=== PATIENT | male | born 1985 | race American Indian/Alaskan Native ===

== ENCOUNTER 2021-01-25 16:05 | Emergency (ER) | payer OTHER ==
[2021-01-25 16:11] VITALS: BP 144/85
[2021-01-25] MEDS ORDERED: FAMOTIDINE 20 MG TAB PO ONE (16:33)
[2021-01-25 17:14] LABS: Alanine Aminotransferase 49 units/L (7-56); Albumin 4.4 g/dL (3.9-5); BUN/Creatinine Ratio 13; Blood Urea Nitrogen 12 mg/dL (9-20); Calcium 9.6 mg/dL (8.4-10.2); Hemolysis Index 10
--- NOTE | 2021-01-25 17:33 | XRay Report ---
CHEST 2 VIEWS INDICATION / CLINICAL INFORMATION: Chest pain. COMPARISON: None available. FINDINGS: SUPPORT DEVICES: None. HEART / MEDIASTINUM: No significant abnormality. LUNGS / PLEURA: No significant pulmonary or pleural abnormality. No pneumothorax. ADDITIONAL FINDINGS: No significant additional findings. IMPRESSION: 1. No acute findings. Signer Name: Julienne Larson MD Signed: 01/25/2021 5:28 PM Workstation Name: [id number]
--- NOTE | 2021-01-25 18:02 | Emergency Department Report ---
ED Chest Pain HPI - General Chief Complaint: Chest Pain Stated Complaint: CHEST PAIN/SOB PUI?: Yes Time Seen by Provider: 01/25/21 16:30 Source: patient Mode of arrival: Ambulatory Limitations: No Limitations - History of Present Illness Initial Comments: This is a 35-year-old male with a past medical history of GERD and anxiety who presents to the ED complaining of intermittent left-sided chest pain x1 week. Patient states that today the pain was persistent and not going away and accompanied by one episode of shortness of breath which brought him into the ED today. Patient denies being around anyone that is been sick. Patient denies any injury or trauma to the chest. Patient does deny coughing, fever, chills, nausea vomiting abdominal pain. Patient does note that he is not taking any medication for anxiety or for his acid reflux. MD Complaint: chest pain - Related Data Previous Rx's Medication Instructions Recorded Last Taken Type Famotidine [Pepcid] 20 mg PO BID #40 tablet 01/25/21 Unknown Rx Allergies Allergy/AdvReac Type Severity Reaction Status Date / Time No Known Allergies Allergy Unverified 01/25/21 16:10 Heart Score - HEART Score History: Slightly suspicious EKG: Normal Age: < 45 Risk factors: No known risk factors Troponin: < normal limit HEART Score: 0 ED Review of Systems ROS: Stated complaint: CHEST PAIN/SOB Other details as noted in HPI Comment: All other systems reviewed and negative ED Past Medical Hx - Past Medical History Previous Medical History?: Yes Hx GERD: Yes Hx Psychiatric Treatment: Yes (anxiety) - Medications Home Medications: Home Medications Medication Instructions Recorded Confirmed Last Taken Type Famotidine [Pepcid] 20 mg PO BID #40 tablet 01/25/21 Unknown Rx ED Physical Exam - General Limitations: No Limitations General appearance: alert, in no apparent distress - Head Head exam: Present: atraumatic, normocephalic - Eye Eye exam: Present: normal appearance - ENT ENT exam: Present: mucous membranes moist - Neck Neck exam: Present: normal inspection, full ROM - Respiratory Respiratory exam: Present: normal lung sounds bilaterally. Absent: respiratory distress, wheezes, chest wall tenderness, accessory muscle use - Cardiovascular Cardiovascular Exam: Present: regular rate, normal rhythm. Absent: systolic murmur, diastolic murmur, rubs, gallop - GI/Abdominal GI/Abdominal exam: Present: soft, normal bowel sounds - Rectal Rectal exam: Present: deferred - Extremities Exam Extremities exam: Present: normal inspection, full ROM - Back Exam Back exam: Present: normal inspection - Neurological Exam Neurological exam: Present: alert, oriented X3, normal gait - Psychiatric Psychiatric exam: Present: normal affect, normal mood - Skin Skin exam: Present: warm, dry, intact, normal color. Absent: rash ED Course Vital Signs 01/25/21 16:10 Temperature 98.7 F Pulse Rate 79 Respiratory 22 Rate Blood Pressure 144/85 O2 Sat by Pulse 99 Oximetry PATRICE score - Patrice Score Age > 65: (0) No Aspirin use within the Past 7 Days: (0) No 3 or more CAD Risk Factors: (0) No Known CAD with more than 50% Stenosis: (0) No Elevated Cardiac Markers: (0) No ST Deviation Greater than 0.5mm: (0) No ED Medical Decision Making - Lab Data Result diagrams: 01/25/21 16:40 Laboratory Last Values Sodium 138 mmol/L (137-145) 01/25/21 16:40 Potassium 4.0 mmol/L (3.6-5.0) 01/25/21 16:40 Chloride 103.8 mmol/L (98-107) 01/25/21 16:40 Carbon Dioxide 27 mmol/L (22-30) 01/25/21 16:40 Anion Gap 11 mmol/L 01/25/21 16:40 BUN 12 mg/dL (9-20) 01/25/21 16:40 Creatinine 0.9 mg/dL (0.8-1.3) 01/25/21 16:40 Estimated GFR > 60 ml/min 01/25/21 16:40 BUN/Creatinine Ratio 13 % 01/25/21 16:40 Glucose 91 mg/dL (75-100) 01/25/21 16:40 Calcium 9.6 mg/dL (8.4-10.2) 01/25/21 16:40 Total Bilirubin 0.40 mg/dL (0.1-1.2) 01/25/21 16:40 AST 27 units/L (5-40) 01/25/21 16:40 ALT 49 units/L (7-56) 01/25/21 16:40 Alkaline Phosphatase 136 units/L (35-129) H 01/25/21 16:40 Troponin T < 0.010 ng/mL (0.00-0.029) 01/25/21 16:40 Total Protein 7.5 g/dL (6.3-8.2) 01/25/21 16:40 Albumin 4.4 g/dL (3.9-5) 01/25/21 16:40 Albumin/Globulin Ratio 1.4 % 01/25/21 16:40 - EKG Data EKG shows normal: sinus rhythm Rate: normal - EKG Data Interpretation: normal EKG - Radiology Data Radiology results: report reviewed, image reviewed Fluoro Time In Minutes: CHEST 2 VIEWS INDICATION / CLINICAL INFORMATION: Chest pain. COMPARISON: None available. FINDINGS: SUPPORT DEVICES: None. HEART / MEDIASTINUM: No significant abnormality. LUNGS / PLEURA: No significant pulmonary or pleural abnormality. No pneumothorax. ADDITIONAL FINDINGS: No significant additional findings. IMPRESSION: 1. No acute findings. Signer Name: Julienne Larson MD Signed: 01/25/2021 5:28 PM Workstation Name: [email or web address] Transcribed By: DT Dictated By: Segun Larson MD Electronically Authenticated By: Segun Larson MD Signed Date/Time: 01/25/21 1728 - Medical Decision Making 35-year-old male presented with chest pain All labs within normal limits, troponin negative, chest x-ray shows no acute findings EKG was normal. I discussed all this findings with the patient. I discussed with patient follow-up with primary care physician. I discussed pain medications such as naproxen for pain. I also suggested patient to follow-up for his anxiety management. Patient is in no acute distress throughout ED stay. Patient also had no respiratory distress. - Differential Diagnosis Chest wall pain, ACS, costochondritis, acid reflux Critical care attestation.: If time is entered above; I have spent that time in minutes in the direct care of this critically ill patient, excluding procedure time. ED Disposition Clinical Impression: Chest pain, Costochondritis, GERD (gastroesophageal reflux disease) Disposition: -01 TO HOME OR SELFCARE Is pt being admited?: No Does the pt Need Aspirin: No Condition: Stable Instructions: Costochondritis, [id number], Nonspecific Chest Pain, Adult, [id number], Chest Pain (ED) Additional Instructions: Make sure to follow up with the primary care physician as discussed. Take all your medications as you've been prescribed. If you have any worsening symptoms or develop new symptoms please return to ED immediately. Prescriptions: Famotidine [Pepcid] 20 mg PO BID #40 tablet Referrals: PRIMARY CAREMD [Primary Care Provider] - 3-5 Days [facility] [Outside] - 3-5 Days [facility] [Outside] - 3-5 Days CAMI TORRES MD [Staff Physician] - 3-5 Days Forms: Work/School Release Form(ED) Time of Disposition: 18:11
== END 2021-01-25 18:23 | disposition home or self-care (01) ==
LOC: ED 16:05
DX: K21.9 Gastro-esophageal reflux disease without esophagitis (principal); M94.0 Chondrocostal junction syndrome [Tietze]; R07.89 Other chest pain; F41.9 Anxiety disorder, unspecified; Z79.899 Other long term (current) drug therapy
CPT/HCPCS: 36415; 71046; 80048; 80053; 84484; 93005

== ENCOUNTER 2021-01-31 17:00 | Emergency (ER) | payer SELFPAY ==
[2021-01-31 17:56] LABS: Basophils % (Auto) 0.7 % (0.0-1.8); Eosinophils % (Auto) 0.6 % (0.0-4.3); Hematocrit 44.6 % (35.5-45.6); Hemoglobin 14.9 gm/dl (11.8-15.2); Lymphocytes # (Auto) 2.4 K/mm3 (1.2-5.4); Lymphocytes % (Auto) 38.3 % (13.4-35.0); Mean Corpuscular HGB Conc 33 % (32-34); Mean Corpuscular Volume 81 fl (84-94); Monocytes # (Auto) 0.7 K/mm3 (0.0-0.8); Monocytes % (Auto) 10.5 % (0.0-7.3); Platelet Count 266 K/mm3 (140-440); Red Blood Count 5.53 M/mm3 (3.65-5.03); Red Cell Distribution Width 15.5 % (13.2-15.2)
--- NOTE | 2021-01-31 18:14 | XRay Report ---
CHEST 2 VIEWS INDICATION / CLINICAL INFORMATION: chest pain. COMPARISON: 01/25/2021 FINDINGS: SUPPORT DEVICES: None. HEART / MEDIASTINUM: No significant abnormality. LUNGS / PLEURA: No significant pulmonary or pleural abnormality. No pneumothorax. ADDITIONAL FINDINGS: No significant additional findings. IMPRESSION: 1. No acute findings or significant interval change when compared to the recent prior radiograph. Signer Name: Yunior Lopez MD Signed: 01/31/2021 6:10 PM Workstation Name: [id number]
[2021-01-31 18:18] LABS: Alanine Aminotransferase 40 units/L (7-56); Albumin 4.1 g/dL (3.9-5); BUN/Creatinine Ratio 16; Blood Urea Nitrogen 14 mg/dL (9-20); Calcium 9.3 mg/dL (8.4-10.2); Hemolysis Index 18
--- NOTE | 2021-01-31 18:57 | Emergency Department Report ---
ED Chest Pain HPI - General Chief Complaint: Chest Pain Stated Complaint: CHEST PAIN Time Seen by Provider: 01/31/21 17:28 Source: patient Mode of arrival: Ambulatory Limitations: No Limitations - History of Present Illness Initial Comments: 35-year-old male, history of acid reflux and anxiety, presents to ED with chest pain. Patient reports onset of chest pain yesterday. Patient states he went to the mall on yesterday. States this was his first visit at the mall since the pandemic began. Patient states there were lots of people at the mall and this mall visit this triggered his anxiety. Patient states he developed a dull pain in the left chest, nonradiating. He reports associated sweating of bilateral palms of his hands and some mild shortness of breath. Patient denies any diaphoresis, nausea, vomiting, leg pain, swelling, cough, fever. Patient is not currently taking anything for anxiety. Patient denies any chest pain at this time. Patient was seen for same 1 week ago and given a prescription for famotidine at that time. MD Complaint: chest pain - Related Data Previous Rx's Medication Instructions Recorded Last Taken Type Famotidine [Pepcid] 20 mg PO BID #40 tablet 01/25/21 Unknown Rx LORazepam [Ativan] 0.5 mg PO BID PRN #10 tab 01/31/21 Unknown Rx Allergies Allergy/AdvReac Type Severity Reaction Status Date / Time No Known Allergies Allergy Unverified 01/25/21 16:10 Heart Score - HEART Score History: Slightly suspicious EKG: Normal Age: < 45 Risk factors: 1-2 risk factors Troponin: < normal limit HEART Score: 1 ED Review of Systems ROS: Stated complaint: CHEST PAIN Other details as noted in HPI ED Past Medical Hx - Past Medical History Previous Medical History?: Yes Hx GERD: Yes Hx Psychiatric Treatment: Yes (anxiety) - Surgical History Past Surgical History?: No - Social History Smoking Status: Never Smoker Substance Use Type: None - Medications Home Medications: Home Medications Medication Instructions Recorded Confirmed Last Taken Type Famotidine [Pepcid] 20 mg PO BID #40 tablet 01/25/21 Unknown Rx LORazepam [Ativan] 0.5 mg PO BID PRN #10 tab 01/31/21 Unknown Rx ED Physical Exam - General Limitations: No Limitations ED Course Vital Signs 01/31/21 01/31/21 01/31/21 17:25 18:48 18:51 Temperature 98.0 F Pulse Rate 71 82 Respiratory 18 12 12 Rate Blood Pressure 122/71 Blood Pressure [Left] O2 Sat by Pulse 100 100 100 Oximetry 01/31/21 01/31/21 19:00 20:10 Temperature Pulse Rate 75 73 Respiratory 25 H 16 Rate Blood Pressure 136/77 Blood Pressure 124/72 [Left] O2 Sat by Pulse 99 98 Oximetry DANA score - Dana Score Age > 65: (0) No Aspirin use within the Past 7 Days: (0) No 3 or more CAD Risk Factors: (0) No Known CAD with more than 50% Stenosis: (0) No Elevated Cardiac Markers: (0) No ST Deviation Greater than 0.5mm: (0) No ED Medical Decision Making - Lab Data Result diagrams: 01/31/21 17:48 01/31/21 17:48 - EKG Data -: EKG Interpreted by Me EKG shows normal: sinus rhythm, axis, intervals, QRS complexes, ST-T waves Rate: normal - EKG Data Interpretation: no acute changes - Radiology Data Radiology results: report reviewed, image reviewed - Medical Decision Making 35-year-old male presents to ED with complaint of chest pain. EKG unremarkable. Troponin negative today. Troponin was also negative during visit from last week. Chest pain seems to be related to patient's anxiety. Patient does not require admission at this time. Will give prescription for Ativan. Patient info faxed to [facility] for urgent cardiology follow-up. Outpatient follow-up advised, return precautions given. - Differential Diagnosis Anxiety, ACS, pneumonia Critical care attestation.: If time is entered above; I have spent that time in minutes in the direct care of this critically ill patient, excluding procedure time. ED Disposition Clinical Impression: Chest pain, Anxiety Disposition: DC-01 TO HOME OR SELFCARE Is pt being admited?: No Condition: Stable Instructions: Nonspecific Chest Pain, Adult, Managing Anxiety, Adult Prescriptions: LORazepam [Ativan] 0.5 mg PO BID PRN #10 tab PRN Reason: Anxiety Referrals: PRIMARY CARE, [Primary Care Provider] - 3-5 Days Time of Disposition: 18:58
[2021-01-31 20:12] VITALS: BP 124/72
== END 2021-01-31 20:10 | disposition home or self-care (01) ==
LOC: ED 17:00
DX: F41.9 Anxiety disorder, unspecified (principal); K21.9 Gastro-esophageal reflux disease without esophagitis; Z79.899 Other long term (current) drug therapy
CPT/HCPCS: 36415; 71046; 80053; 84484; 85025; 93005

== ENCOUNTER 2021-02-15 14:48 | Emergency (ER) | payer SELFPAY ==
--- NOTE | 2021-02-15 15:44 | Event Note ---
ED Screening Note ED Screening Note: two days ago states he has been having leg pain states he is also having left sided CP which he reports feels like a dull ache states he has mild pleuritic pain +SOB no leg swelling states he has aching in the calves no fever no n/v no cough no hemoptysis no recent travel no recent surgery pmhx anxiety, panic adverse reaction: compazine non smoker grandmother cardiac hx at 65 yo This initial assessment/diagnostic orders/clinical plan/treatment(s) is/are subject to change based on patients health status, clinical progression and re- assessment by fellow clinical providers in the ED. Further treatment and workup at subsequent clinical providers discretion. Patient/guardian urged not to elope from the ED as their condition may be serious if not clinically assessed and managed. Initial orders include: labs, EKG, CXR, US
--- NOTE | 2021-02-15 16:37 | XRay Report ---
CHEST 2 VIEWS INDICATION: Chest pain, left upper rib pain. COMPARISON: 01/31/2021 FINDINGS: Support devices: None. Heart: Within normal limits. Lungs/pleura: No acute air space or interstitial disease. No pneumothorax. Additional findings: No obvious osseous abnormality on x-ray IMPRESSION: No acute findings. No change since 01/31/2021. Signer Name: Rakesh Manriquez Jr, MD Signed: 02/15/2021 4:32 PM Workstation Name: [id number]
--- NOTE | 2021-02-15 16:41 | Vascular Lab Report ---
DUPLEX DOPPLER LOWER EXTREMITY VEINS, BILATERAL INDICATION / CLINICAL INFORMATION: BLE pain, calf pain. TECHNIQUE: Duplex doppler imaging was performed through the veins of both lower extremities using venous brittney rhoda and other maneuvers. COMPARISON: None available. FINDINGS: RIGHT COMMON FEMORAL VEIN: Negative. RIGHT FEMORAL VEIN: Negative. RIGHT POPLITEAL VEIN: Negative. RIGHT CALF VEINS: Negative. LEFT COMMON FEMORAL VEIN: Negative. LEFT FEMORAL VEIN: Negative. LEFT POPLITEAL VEIN: Negative. LEFT CALF VEINS: Negative. ADDITIONAL FINDINGS: None. IMPRESSION: No sonographic evidence for DVT in either lower extremity. Signer Name: Mayur Bryan MD Signed: 02/15/2021 4:37 PM Workstation Name: [id number]
[2021-02-15 16:51] LABS: Basophils % (Auto) 0.7 % (0.0-1.8); Eosinophils % (Auto) 0.6 % (0.0-4.3); Hematocrit 47.5 % (35.5-45.6); Hemoglobin 15.6 gm/dl (11.8-15.2); Lymphocytes # (Auto) 1.8 K/mm3 (1.2-5.4); Lymphocytes % (Auto) 30.6 % (13.4-35.0); Mean Corpuscular HGB Conc 33 % (32-34); Mean Corpuscular Volume 82 fl (84-94); Monocytes # (Auto) 0.6 K/mm3 (0.0-0.8); Platelet Count 271 K/mm3 (140-440); Red Blood Count 5.77 M/mm3 (3.65-5.03); Red Cell Distribution Width 15.7 % (13.2-15.2)
[2021-02-15 17:11] LABS: INR 1.03 (0.87-1.13)
[2021-02-15 17:12] LABS: Partial Thromboplastin Time 27.4 Sec. (24.2-36.6)
[2021-02-15 17:17] LABS: Alanine Aminotransferase 42 units/L (7-56); Albumin 4.5 g/dL (3.9-5); BUN/Creatinine Ratio 10; Blood Urea Nitrogen 9 mg/dL (9-20); Calcium 9.6 mg/dL (8.4-10.2); Hemolysis Index 6
--- NOTE | 2021-02-15 19:01 | Emergency Department Report ---
ED General Adult HPI - General Chief complaint: Extremity Injury, Lower Stated complaint: CHEST/LEG PAIN/SHORTNESS OF BREATH Time Seen by Provider: 02/15/21 15:42 Source: patient Mode of arrival: Ambulatory Limitations: No Limitations - History of Present Illness Initial comments: 35-year-old male with past medical history of anxiety presents to the ER today with complaints of pain to his bilateral lower extremity, as well as chest pain and shortness of breath. Patient states that for the past 2 days he has been having intermittent pain to the posterior aspect of both lower legs. He denies any associated swelling. He states that he did start having "a little" chest pain on the left side of his chest intermittently, and then today started having "a little" shortness of breath mainly when he walks. Patient states that he thinks it could be related to his anxiety but he was not sure decided come in to get checked out. Patient has been in the ER waiting to be seen for the past 3 hours, patient states that his symptoms have improved since he has been waiting. He does have a appointment to see a psychiatrist this coming Monday. He denies any cough, URI symptoms, abdominal pain, nausea, vomiting, diaphoresis, SI/HI or hallucinations. MD Complaint: Bilateral LE pain/Chest pain/SOB -: Gradual, days(s) (2) - Related Data Previous Rx's Medication Instructions Recorded Last Taken Type Famotidine [Pepcid] 20 mg PO BID #40 tablet 01/25/21 Unknown Rx diazePAM TAB [Valium] 5 mg PO BID PRN #5 tab 02/15/21 Unknown Rx Allergies Allergy/AdvReac Type Severity Reaction Status Date / Time No Known Allergies Allergy Verified 02/15/21 15:13 ED Review of Systems ROS: Stated complaint: CHEST/LEG PAIN/SHORTNESS OF BREATH Other details as noted in HPI Comment: All other systems reviewed and negative Constitutional: denies: chills, diaphoresis, fever, malaise, weakness Eyes: denies: eye pain, eye discharge, vision change ENT: denies: ear pain, throat pain Respiratory: shortness of breath. denies: cough, SOB with exertion, SOB at rest, stridor, wheezing Cardiovascular: chest pain. denies: palpitations Endocrine: no symptoms reported Gastrointestinal: denies: abdominal pain, nausea, vomiting, diarrhea, constipation, hematemesis Musculoskeletal: arthralgia, myalgia. denies: back pain, joint swelling Skin: denies: rash, lesions Neurological: denies: headache, weakness, paresthesias Psychiatric: denies: anxiety, depression Hematological/Lymphatic: denies: easy bleeding, easy bruising ED Past Medical Hx - Past Medical History Hx GERD: Yes Hx Psychiatric Treatment: Yes (anxiety/ PANIC DISORDER) - Surgical History Past Surgical History?: No - Social History Smoking Status: Never Smoker Substance Use Type: None - Medications Home Medications: Home Medications Medication Instructions Recorded Confirmed Last Taken Type Famotidine [Pepcid] 20 mg PO BID #40 tablet 01/25/21 Unknown Rx diazePAM TAB [Valium] 5 mg PO BID PRN #5 tab 02/15/21 Unknown Rx ED Physical Exam - General Limitations: No Limitations General appearance: alert, in no apparent distress, obese - Head Head exam: Present: atraumatic, normocephalic, normal inspection - Eye Eye exam: Present: normal appearance, PERRL, EOMI Pupils: Present: normal accommodation - Neck Neck exam: Present: normal inspection, full ROM. Absent: meningismus - Respiratory Respiratory exam: Present: normal lung sounds bilaterally. Absent: respiratory distress - Cardiovascular Cardiovascular Exam: Present: regular rate, normal rhythm, normal heart sounds - GI/Abdominal GI/Abdominal exam: Present: soft. Absent: distended, tenderness, guarding, rebound - Extremities Exam Extremities exam: Present: normal inspection, full ROM. Absent: tenderness, pedal edema, calf tenderness - Neurological Exam Neurological exam: Present: alert, oriented X3, CN II-XII intact, normal gait - Psychiatric Psychiatric exam: Present: normal affect, normal mood. Absent: anxious, homicidal ideation, suicidal ideation ED Course Vital Signs 02/15/21 02/15/21 15:15 19:15 Temperature 98.3 F Pulse Rate 71 79 Respiratory 20 Rate Blood Pressure 129/74 Blood Pressure 131/74 [Right] O2 Sat by Pulse 100 99 Oximetry ED Medical Decision Making - Lab Data Result diagrams: 02/15/21 16:34 02/15/21 16:33 - EKG Data EKG shows normal: sinus rhythm Rate: normal (66) - EKG Data Interpretation: no acute changes - Radiology Data Radiology results: report reviewed [facility] [address] [place] [address] Vascular Lab Report Signed Patient: SEJAL AYERS III MR#: [id number] : 1985 Acct:[id number] Age/Sex: 35 / M ADM Date: 02/15/21 Loc: ED Attending Dr: Ordering Physician: DEBBIE SANDOVAL Date of Service: 02/15/21 Procedure(s): VL venous duplex LE BILAT Accession Number(s): [id number] cc: DEBBIE SANDOVAL DUPLEX DOPPLER LOWER EXTREMITY VEINS, BILATERAL INDICATION / CLINICAL INFORMATION: BLE pain, calf pain. TECHNIQUE: Duplex doppler imaging was performed through the veins of both lower extremit ies using venous compression and other maneuvers. COMPARISON: None available. FINDINGS: RIGHT COMMON FEMORAL VEIN: Negative. RIGHT FEMORAL VEIN: Negative. RIGHT POPLITEAL VEIN: Negative. RIGHT CALF VEINS: Negative. LEFT COMMON FEMORAL VEIN: Negative. LEFT FEMORAL VEIN: Negative. LEFT POPLITEAL VEIN: Negative. LEFT CALF VEINS: Negative. ADDITIONAL FINDINGS: None. IMPRESSION: No sonographic evidence for DVT in either lower extremity. Signer Name: Ephraim Bryan MD Signed: 02/15/2021 4:37 PM Workstation Name: [id number] Transcribed By: SS Dictated By: EPHRAIM BRYAN Electronically Authenticated By: EPHRAIM BRYAN Signed Date/Time: 02/15/21 163 DD/ 163 TD/TT: Patient: SEJAL AYERS III MR#: [id number] : 1985 Acct:[id number] Age/Sex: 35 / M ADM Date: 02/15/21 Loc: ED Attending Dr: Ordering Physician: DEBBIE SANDOVAL Date of Service: 02/15/21 Procedure(s): XR chest routine 2V Accession Number(s): [id number] cc: DEBBIE SANDOVAL Fluoro Time In Minutes: CHEST 2 VIEWS INDICATION: Chest pain, left upper rib pain. COMPARISON: 01/31/2021 FINDINGS: Support devices: None. Heart: Within normal limits. Lungs/pleura: No acute air space or interstitial disease. No pneumothorax. Additional findings: No obvious osseous abnormality on x-ray IMPRESSION: No acute findings. No change since 01/31/2021. Signer Name: Rakesh Manriquez Jr, MD Signed: 02/15/2021 4:32 PM Workstation Name: [email or web address] Transcribed By: TTR Dictated By: RAKESH MANRIQUEZ JR, MD Electronically Authenticated By: RAKESH MANRIQUEZ JR, MD Signed Date/Time: 02/15/21 163 DD/ 163 TD/TT: - Medical Decision Making labs/EKG/CXR/venous doppler reviewed -nothing acute on work-up today. Repeat VS normal. Patient well appearing, not toxic, not in acute pain or respiratory distress is neurologically intact with a normal gait. The electrocardiogram shows no signs of acute ischemia and the history, exam, diagnostic testing and current conditi on do not suggest that this patient is having acute myocardial infarction, significant arrhythmia, unstable angina, esophageal perforation, pulmonary embolism, aortic dissection, pneumothorax, severe pneumonia, sepsis or other significant pathology that would warrant further testing, continued ED tr eatment, admission or cardiology or other specialist consultation at this time. Discussed results, suspected dx and tx plan with pt. Recommend he keeps his appointment with his psychiatrist this coming Monday. Patient expressed understanding of instructions and agree with plan. Patient stable at time of discharge. Critical care attestation.: If time is entered above; I have spent that time in minutes in the direct care of this critically ill patient, excluding procedure time. ED Disposition Clinical Impression: Atypical chest pain, Bilateral lower extremity pain, History of anxiety Disposition: TO HOME OR SELFCARE Is pt being admited?: No Does the pt Need Aspirin: No Condition: Stable Instructions: Generalized Anxiety Disorder, Adult, Nonspecific Chest Pain, Adult, Leg Cramps Additional Instructions: Take the valium as prescribed. Keep your appointment with the psychiatrist that you have scheduled for this Monday. Follow-up also with a primary care doctor. Return to the ER if your symptoms changes or worsens. Prescriptions: diazePAM TAB [Valium] 5 mg PO BID PRN #5 tab PRN Reason: Anxiety Referrals: RAUL NOLAN MD [Staff Physician] - 3-5 Days Time of Disposition: 19:02
[2021-02-15 19:18] VITALS: BP 131/74
--- NOTE | 2021-02-19 10:18 | Electrocardiograph Report ---
[facility] Test Date: 2021-02-15 Test Time: 18:47:52 Pat Name: SEJAL AYERS Department: Room: Gender: M Thread Singer: CHRISSY : 1985 Requested By: FLORIDA ZABALA Order Number: [id number] Reading MD: Ivania Berg Measurements Intervals Weems Rate: 66 P: 20 IN: 181 QRS: 31 QRSD: 96 T: 19 QT: 387 QTc: 406 Interpretive Statements Sinus rhythm CONSIDER acute INFERIOR INFARCT No previous ECG available for comparison Electronically Signed On 02-19-2021 10:17:58 EDT by Ivania Berg
== END 2021-02-15 19:15 | disposition home or self-care (01) ==
LOC: ED 14:48
DX: M79.604 Pain in right leg (principal); M79.605 Pain in left leg; R07.89 Other chest pain; K21.9 Gastro-esophageal reflux disease without esophagitis; F41.9 Anxiety disorder, unspecified; Z79.899 Other long term (current) drug therapy
CPT/HCPCS: 36415; 71046; 80053; 82550; 83735; 84484; 85025; 85379; 85610; 85730; 93005; 93970

== ENCOUNTER 2021-02-24 09:07 | Emergency (ER) | payer SELFPAY ==
--- NOTE | 2021-02-24 10:51 | Emergency Department Report ---
ED Chest Pain HPI - General Chief Complaint: Chest Pain Stated Complaint: CHEST PAIN, RIGHT LEG PAIN Time Seen by Provider: 02/24/21 10:42 Source: patient Mode of arrival: Ambulatory Limitations: No Limitations - History of Present Illness Initial Comments: This is a 35-year-old man who states he does have a history of an anxiety disorder but no other medical history. My impression is that he does not go to a physician very often. He has not related to his current complaint. He has had bilateral leg pain which appears to be worse in his anterior thighs for as long as 3 weeks. He denies recent injury. He states that last night he had soreness in the left periaxillary area of his anterior chest. He denied any respiratory symptoms. The pain was nonpleuritic. He denied fever chills and cough. He has not noted any leg swelling. MD Complaint: chest pain -: Gradual, hour(s) Onset: during rest Pain Location: left chest Pain Radiation: none Severity: mild Quality: other (Soreness) Consistency: now resolved (Except when touched) Improves With: nothing Worsens With: movement re: denies: nausea, vomting, diaphoresis Other Symptoms: denies: cough, fever, syncope Treatments Prior to Arrival: none - Related Data Home Medications Medication Instructions Recorded Confirmed Last Taken No Known Home Medications [No 02/24/21 02/24/21 Unknown Reported Home Medications] Allergies Allergy/AdvReac Type Severity Reaction Status Date / Time No Known Allergies Allergy Verified 02/15/21 15:13 Heart Score - HEART Score History: Slightly suspicious EKG: Normal Age: < 45 Risk factors: No known risk factors Troponin: < normal limit HEART Score: 0 - EKG Read Time Time EKG Completed: 09:17 EKG Read Time: 09:20 ED Review of Systems ROS: Stated complaint: CHEST PAIN, RIGHT LEG PAIN Other details as noted in HPI Constitutional: denies: chills, fever Eyes: denies: eye pain, eye discharge, vision change ENT: denies: ear pain, throat pain Respiratory: denies: cough, shortness of breath, wheezing Cardiovascular: chest pain. denies: palpitations Endocrine: no symptoms reported Gastrointestinal: denies: abdominal pain, nausea, diarrhea Genitourinary: denies: urgency, dysuria Musculoskeletal: as per HPI. denies: back pain, joint swelling, arthralgia Skin: denies: rash, lesions Neurological: denies: headache, weakness, paresthesias Psychiatric: denies: anxiety, depression Hematological/Lymphatic: denies: easy bleeding, easy bruising ED Past Medical Hx - Past Medical History Hx GERD: Yes Hx Psychiatric Treatment: Yes (anxiety/ PANIC DISORDER) - Surgical History Past Surgical History?: No - Social History Smoking Status: Never Smoker Substance Use Type: None - Medications Home Medications: Home Medications Medication Instructions Recorded Confirmed Last Taken Type No Known Home Medications [No 02/24/21 02/24/21 Unknown History Reported Home Medications] ED Physical Exam - General Limitations: No Limitations General appearance: alert, in no apparent distress - Head Head exam: Present: atraumatic, normocephalic - Eye Eye exam: Present: normal appearance. Absent: scleral icterus - ENT ENT exam: Present: mucous membranes moist - Neck Neck exam: Present: normal inspection - Respiratory Respiratory exam: Present: normal lung sounds bilaterally, chest wall tenderness (Reproducing symptoms). Absent: respiratory distress - Cardiovascular Cardiovascular Exam: Present: regular rate, normal rhythm. Absent: systolic murmur, diastolic murmur, rubs, gallop - GI/Abdominal GI/Abdominal exam: Present: soft, normal bowel sounds. Absent: distended, tenderness, guarding, rebound - Rectal Rectal exam: Present: deferred - Extremities Exam Extremities exam: Present: normal inspection, normal capillary refill. Absent: pedal edema, joint swelling, calf tenderness - Back Exam Back exam: Present: normal inspection - Neurological Exam Neurological exam: Present: alert, oriented X3, CN II-XII intact. Absent: motor sensory deficit - Psychiatric Psychiatric exam: Present: normal affect, normal mood - Skin Skin exam: Present: warm, dry, intact, normal color. Absent: rash ED Course Vital Signs 02/24/21 02/24/21 02/24/21 09:08 11:12 11:15 Temperature 98.1 F Pulse Rate 74 63 67 Respiratory 15 15 22 Rate Blood Pressure 149/88 120/72 O2 Sat by Pulse 98 Oximetry 02/24/21 02/24/21 02/24/21 11:30 11:46 12:00 Temperature Pulse Rate 65 69 67 Respiratory 20 19 20 Rate Blood Pressure 120/72 120/72 120/72 O2 Sat by Pulse 97 98 97 Oximetry 02/24/21 02/24/21 02/24/21 12:16 12:29 13:00 Temperature Pulse Rate 60 57 L Respiratory 18 18 18 Rate Blood Pressure 110/54 110/54 O2 Sat by Pulse 97 100 98 Oximetry DANA score - Dana Score Age > 65: (0) No Aspirin use within the Past 7 Days: (0) No 3 or more CAD Risk Factors: (0) No Known CAD with more than 50% Stenosis: (0) No Elevated Cardiac Markers: (0) No ST Deviation Greater than 0.5mm: (0) No ED Medical Decision Making - Lab Data Result diagrams: 02/24/21 11:08 02/24/21 11:08 Laboratory Results - last 24 hr 02/24/21 02/24/21 02/24/21 11:08 11:08 11:08 WBC 5.7 RBC 5.38 H Hgb 14.2 Hct 44.2 MCV 82 L MCH 26 L MCHC 32 RDW 15.8 H Plt Count 254 Lymph % (Auto) 36.1 H [place] % (Auto) 9.8 H Eos % (Auto) 0.9 Baso % (Auto) 0.5 Lymph # (Auto) 2.1 [place] # (Auto) 0.6 Eos # (Auto) 0.1 Baso # (Auto) 0.0 Seg Neutrophils % 52.7 Seg Neutrophils # 3.0 PT 12.8 INR 0.98 APTT 27.1 D-Dimer < 135.00 Sodium 139 Potassium 3.8 Chloride 104.9 Carbon Dioxide 28 Anion Gap 10 BUN 12 Creatinine 0.8 Estimated GFR > 60 BUN/Creatinine Ratio 15 Glucose 101 H Calcium 9.2 Total Creatine Kinase 232 H CK-MB (CK-2) 1.2 CK-MB (CK-2) Rel Index 0.5 Laboratory Results - last 24 hr 02/24/21 02/24/21 02/24/21 11:08 11:08 11:08 WBC 5.7 RBC 5.38 H Hgb 14.2 Hct 44.2 MCV 82 L MCH 26 L MCHC 32 RDW 15.8 H Plt Count 254 Lymph % (Auto) 36.1 H [place] % (Auto) 9.8 H Eos % (Auto) 0.9 Baso % (Auto) 0.5 Lymph # (Auto) 2.1 [place] # (Auto) 0.6 Eos # (Auto) 0.1 Baso # (Auto) 0.0 Seg Neutrophils % 52.7 Seg Neutrophils # 3.0 PT 12.8 INR 0.98 APTT 27.1 D-Dimer < 135.00 Sodium 139 Potassium 3.8 Chloride 104.9 Carbon Dioxide 28 Anion Gap 10 BUN 12 Creatinine 0.8 Estimated GFR > 60 BUN/Creatinine Ratio 15 Glucose 101 H Calcium 9.2 Total Creatine Kinase 232 H CK-MB (CK-2) 1.2 CK-MB (CK-2) Rel Index 0.5 Troponin T 02/24/21 13:06 WBC RBC Hgb Hct MCV MCH MCHC RDW Plt Count Lymph % (Auto) [place] % (Auto) Eos % (Auto) Baso % (Auto) Lymph # (Auto) [place] # (Auto) Eos # (Auto) Baso # (Auto) Seg Neutrophils % Seg Neutrophils # PT INR APTT D-Dimer Sodium Potassium Chloride Carbon Dioxide Anion Gap BUN Creatinine Estimated GFR BUN/Creatinine Ratio Glucose Calcium Total Creatine Kinase CK-MB (CK-2) CK-MB (CK-2) Rel Index Troponin T < 0.010 - EKG Data -: EKG Interpreted by Pa EKG shows normal: sinus rhythm, axis, intervals, QRS complexes, ST-T waves - EKG Data Interpretation: no acute changes - Radiology Data Radiology results: report reviewed Critical care attestation.: If time is entered above; I have spent that time in minutes in the direct care of this critically ill patient, excluding procedure time. ED Disposition Clinical Impression: Atypical chest pain, Musculoskeletal pain of extremity Disposition: DC-01 TO HOME OR SELFCARE Is pt being admited?: No Does the pt Need Aspirin: No Condition: Stable Instructions: Nonspecific Chest Pain, Adult Additional Instructions: Follow-up with primary care provider. Return to the emergency department any acute change or problem. Referrals: MELISSA LOAIZA MD [Primary Care Provider] - 3-5 Days [facility] [Provider Group] - 3-5 Days Time of Disposition: 13:35
[2021-02-24 11:16] LABS: Basophils % (Auto) 0.5 % (0.0-1.8); Eosinophils # (Auto) 0.1 K/mm3 (0.0-0.4); Eosinophils % (Auto) 0.9 % (0.0-4.3); Hematocrit 44.2 % (35.5-45.6); Hemoglobin 14.2 gm/dl (11.8-15.2); Lymphocytes # (Auto) 2.1 K/mm3 (1.2-5.4); Lymphocytes % (Auto) 36.1 % (13.4-35.0); Mean Corpuscular HGB Conc 32 % (32-34); Mean Corpuscular Volume 82 fl (84-94); Monocytes # (Auto) 0.6 K/mm3 (0.0-0.8); Monocytes % (Auto) 9.8 % (0.0-7.3); Platelet Count 254 K/mm3 (140-440); Red Blood Count 5.38 M/mm3 (3.65-5.03); Red Cell Distribution Width 15.8 % (13.2-15.2)
[2021-02-24 11:31] LABS: INR 0.98 (0.87-1.13)
[2021-02-24 11:32] LABS: Partial Thromboplastin Time 27.1 Sec. (24.2-36.6)
[2021-02-24 11:40] LABS: Creatine Kinase MB 1.2 ng/mL (0.0-4.0)
[2021-02-24 11:42] LABS: BUN/Creatinine Ratio 15; Blood Urea Nitrogen 12 mg/dL (9-20); Calcium 9.2 mg/dL (8.4-10.2); Hemolysis Index 4
[2021-02-24 12:18] VITALS: BP 110/54
--- NOTE | 2021-02-26 11:17 | Electrocardiograph Report ---
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
== END 2021-02-24 14:35 | disposition home or self-care (01) ==
LOC: ED 09:07
DX: M79.604 Pain in right leg (principal); M79.605 Pain in left leg; R07.89 Other chest pain; K21.9 Gastro-esophageal reflux disease without esophagitis; F41.0 Panic disorder [episodic paroxysmal anxiety]; F41.9 Anxiety disorder, unspecified
CPT/HCPCS: 36415; 80048; 82550; 82553; 84484; 85025; 85379; 85610; 85730; 93005

== ENCOUNTER 2021-04-26 22:32 | Emergency (ER) | payer SELFPAY ==
[2021-04-27 04:39] LABS: Basophils # (Auto) 0.1 K/mm3 (0.0-0.1); Basophils % (Auto) 1.2 % (0.0-1.8); Eosinophils % (Auto) 0.3 % (0.0-4.3); Hematocrit 41.1 % (35.5-45.6); Hemoglobin 14.1 gm/dl (11.8-15.2); Lymphocytes # (Auto) 2.5 K/mm3 (1.2-5.4); Lymphocytes % (Auto) 26.2 % (13.4-35.0); Mean Corpuscular HGB Conc 34 % (32-34); Mean Corpuscular Volume 80 fl (84-94); Monocytes # (Auto) 0.9 K/mm3 (0.0-0.8); Platelet Count 299 K/mm3 (140-440); Red Blood Count 5.12 M/mm3 (3.65-5.03); Red Cell Distribution Width 14.2 % (13.2-15.2)
[2021-04-27 05:01] LABS: Alanine Aminotransferase 25 units/L (7-56); Albumin 4.5 g/dL (3.9-5); BUN/Creatinine Ratio 16; Blood Urea Nitrogen 13 mg/dL (9-20); Calcium 9.6 mg/dL (8.4-10.2); Hemolysis Index 7
[2021-04-27 05:42] VITALS: BP 132/81
== END 2021-04-27 05:42 | disposition home or self-care (01) ==
LOC: ED 22:32
DX: F41.0 Panic disorder [episodic paroxysmal anxiety] (principal); F41.9 Anxiety disorder, unspecified; K21.9 Gastro-esophageal reflux disease without esophagitis; Z98.890 Other specified postprocedural states; Z79.899 Other long term (current) drug therapy
CPT/HCPCS: 36415; 71045; 80053; 84484; 85025; 93005; 99283

== ENCOUNTER 2021-05-03 18:19 | Emergency (ER) | payer SELFPAY ==
[2021-05-03 19:11] VITALS: BP 147/81
[2021-05-03 21:03] LABS: Basophils # (Auto) 0.1 K/mm3 (0.0-0.1); Basophils % (Auto) 0.7 % (0.0-1.8); Eosinophils % (Auto) 0.4 % (0.0-4.3); Hematocrit 46.9 % (35.5-45.6); Hemoglobin 15.2 gm/dl (11.8-15.2); Lymphocytes # (Auto) 2.3 K/mm3 (1.2-5.4); Lymphocytes % (Auto) 30.3 % (13.4-35.0); Mean Corpuscular HGB Conc 32 % (32-34); Mean Corpuscular Volume 83 fl (84-94); Monocytes # (Auto) 0.6 K/mm3 (0.0-0.8); Monocytes % (Auto) 7.9 % (0.0-7.3); Platelet Count 304 K/mm3 (140-440); Red Blood Count 5.63 M/mm3 (3.65-5.03); Red Cell Distribution Width 14.4 % (13.2-15.2)
[2021-05-03 21:20] LABS: INR 0.98 (0.87-1.13)
[2021-05-03 21:21] LABS: Alanine Aminotransferase 26 units/L (7-56); Albumin 4.6 g/dL (3.9-5); BUN/Creatinine Ratio 14; Blood Urea Nitrogen 11 mg/dL (9-20); Calcium 9.8 mg/dL (8.4-10.2); Hemolysis Index 18; Partial Thromboplastin Time 28.1 Sec. (24.2-36.6)
--- NOTE | 2021-05-03 21:24 | XRay Report ---
CHEST 2 VIEWS INDICATION / CLINICAL INFORMATION: Chest Pain. COMPARISON: 04/27/2021 FINDINGS: SUPPORT DEVICES: None. HEART / MEDIASTINUM: Stable. LUNGS / PLEURA: No significant pulmonary or pleural abnormality. No pneumothorax. ADDITIONAL FINDINGS: No significant additional findings. IMPRESSION: 1. No acute findings. No significant interval change. Signer Name: Nick Garrison MD Signed: 05/03/2021 9:20 PM Workstation Name: [id number]
--- NOTE | 2021-05-07 18:51 | Electrocardiograph Report ---
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
== END 2021-05-04 06:17 | disposition left against medical advice (07) ==
LOC: ED 18:19
DX: R07.89 Other chest pain (principal); R06.02 Shortness of breath; Z53.21 Procedure and treatment not carried out due to patient leaving prior to being seen by health care provider
CPT/HCPCS: 36415; 71046; 80053; 83690; 84484; 85025; 85610; 85730; 93005

== ENCOUNTER 2021-05-06 01:51 | Emergency (ER) | payer SELFPAY ==
[2021-05-06] MEDS ORDERED: ASPIRIN 325 MG TAB PO ONE (02:09)
[2021-05-06 02:42] LABS: Basophils # (Auto) 0.1 K/mm3 (0.0-0.1); Basophils % (Auto) 1.1 % (0.0-1.8); Eosinophils % (Auto) 0.4 % (0.0-4.3); Hematocrit 43.1 % (35.5-45.6); Hemoglobin 14.3 gm/dl (11.8-15.2); Lymphocytes # (Auto) 2.9 K/mm3 (1.2-5.4); Lymphocytes % (Auto) 31.9 % (13.4-35.0); Mean Corpuscular HGB Conc 33 % (32-34); Mean Corpuscular Volume 83 fl (84-94); Monocytes # (Auto) 0.8 K/mm3 (0.0-0.8); Monocytes % (Auto) 8.9 % (0.0-7.3); Platelet Count 291 K/mm3 (140-440); Red Blood Count 5.22 M/mm3 (3.65-5.03); Red Cell Distribution Width 14.2 % (13.2-15.2)
[2021-05-06 02:58] LABS: Alanine Aminotransferase 30 units/L (7-56); Albumin 4.6 g/dL (3.9-5); BUN/Creatinine Ratio 12; Blood Urea Nitrogen 11 mg/dL (9-20); Calcium 9.5 mg/dL (8.4-10.2); Hemolysis Index 5
--- NOTE | 2021-05-06 03:29 | XRay Report ---
CHEST 2 VIEWS, 05/06/2021 1:44 AM INDICATION: Chest pain. Cough. COMPARISON: Chest radiograph, 05/03/2021 FINDINGS: Support devices: None. Heart: The cardiac silhouette is normal in size. Lungs/pleura: The lungs are clear of focal airspace disease or significant pleural effusion. Additional findings: No significant acute abnormality. IMPRESSION: 1. No evidence of acute cardiopulmonary process. Signer Name: Anna Mathias MD Signed: 05/06/2021 3:25 AM Workstation Name: [id number]
[2021-05-06] MEDS ORDERED: ACETAMINOPHEN 325 MG TAB PO ONE (04:05)
--- NOTE | 2021-05-06 06:09 | Emergency Department Report ---
ED Psych HPI - General Chief Complaint: Chest Pain Stated Complaint: LEG PAIN W/SHORTNESS OF BREATH Time Seen by Provider: 05/06/21 05:54 Source: patient Mode of arrival: Ambulatory - History of Present Illness Initial Comments: Chief complaint: Leg pain shortness of breath HPI: This is a 35-year-old male with history of GERD anxiety panic disorder who presents with right leg pain shortness of breath. He admits to to severe anxiety panic. When he has symptoms he is concerned that he is going to . He denies suicidal ideation. He recently made a follow-up clinic appointment at the [facility]. I evaluated this patient 9 days ago for chest pain and anxiety. At that time he thought he may have had cancer. At that time I will prescribe lorazepam. He has since use all that medication. He was also prescribed recently Valium. He has used most of that medication. Next His PCP is Dr. Li. Last visit with Dr. Vasquez 3 months ago. He denies suicidal homicidal ideation. This is patient's seventh visit for chest pain shortness of breath at times leg pain since January. In January patient had negative bilateral duplex ultrasound study. He has had 2 negative D-dimer marker tests on 2 different occasions. Prior to my evaluation, letter informing that he demanded D-dimer and ultrasound to be ordered. MD Complaint: other (Anxiety hypochondriasis) -: Gradual (Several months) Associated Psychiatric Symptoms: depression, racing thoughts, other (Anxiety panic) History of same: Yes Quality: constant Improves With: none Worsens With: none Associated Symptoms: other (Chest pain shortness of breath right leg pain) - Related Data Previous Rx's Medication Instructions Recorded Last Taken Type LORazepam [Ativan] 0.5 mg PO Q6H PRN #10 tablet 04/27/21 Unknown Rx Allergies Allergy/AdvReac Type Severity Reaction Status Date / Time No Known Allergies Allergy Verified 02/15/21 15:13 ED Review of Systems ROS: Stated complaint: LEG PAIN W/SHORTNESS OF BREATH Other details as noted in HPI Comment: All other systems reviewed and negative Constitutional: denies: fever, malaise Respiratory: denies: cough Cardiovascular: chest pain ED Past Medical Hx - Past Medical History Previous Medical History?: Yes Hx GERD: Yes Hx Psychiatric Treatment: Yes (anxiety/ PANIC DISORDER) - Surgical History Past Surgical History?: Yes Additional Surgical History: right wrist - Social History Smoking Status: Never Smoker Substance Use Type: None - Medications Home Medications: Home Medications Medication Instructions Recorded Confirmed Last Taken Type LORazepam [Ativan] 0.5 mg PO Q6H PRN #10 tablet 04/27/21 Unknown Rx ED Physical Exam - General Limitations: No Limitations General appearance: alert, in no apparent distress - Head Head exam: Present: atraumatic, normocephalic - Eye Eye exam: Present: normal appearance - ENT ENT exam: Present: mucous membranes moist - Neck Neck exam: Present: normal inspection, full ROM - Respiratory Respiratory exam: Present: normal lung sounds bilaterally. Absent: respiratory distress, wheezes, rales, rhonchi - Cardiovascular Cardiovascular Exam: Present: regular rate, normal rhythm, normal heart sounds. Absent: systolic murmur, diastolic murmur, rubs, gallop - GI/Abdominal GI/Abdominal exam: Present: soft, normal bowel sounds. Absent: distended, tenderness, guarding, rebound - Rectal Rectal exam: Present: deferred - Extremities Exam Extremities exam: Present: normal inspection - Back Exam Back exam: Present: normal inspection - Neurological Exam Neurological exam: Present: alert, oriented X3 - Psychiatric Psychiatric exam: Present: anxious, flat affect. Absent: manic, homicidal ideation, suicidal ideation - Skin Skin exam: Present: warm, dry, intact, normal color. Absent: rash ED Course Vital Signs 05/06/21 05/06/21 02:06 04:09 Temperature 98.2 F Pulse Rate 89 Respiratory 18 18 Rate Blood Pressure 156/82 O2 Sat by Pulse 98 Oximetry ED Medical Decision Making - Lab Data Result diagrams: 05/06/21 02:15 05/06/21 02:15 Laboratory Results - last 24 hr 05/06/21 05/06/21 02:15 02:15 WBC 9.2 RBC 5.22 H Hgb 14.3 Hct 43.1 MCV 83 L MCH 27 L MCHC 33 RDW 14.2 Plt Count 291 Lymph % (Auto) 31.9 [place] % (Auto) 8.9 H Eos % (Auto) 0.4 Baso % (Auto) 1.1 Lymph # (Auto) 2.9 [place] # (Auto) 0.8 Eos # (Auto) 0.0 Baso # (Auto) 0.1 Seg Neutrophils % 57.7 Seg Neutrophils # 5.3 Sodium 141 Potassium 3.4 L Chloride 101.3 Carbon Dioxide 26 Anion Gap 17 BUN 11 Creatinine 0.9 Estimated GFR > 60 BUN/Creatinine Ratio 12 Glucose 127 H Calcium 9.5 Total Bilirubin 0.30 AST 17 ALT 30 Alkaline Phosphatase 154 H Troponin T < 0.010 Total Protein 7.6 Albumin 4.6 Albumin/Globulin Ratio 1.5 - EKG Data -: EKG Interpreted by Me EKG shows normal: sinus rhythm, axis, intervals, QRS complexes, ST-T waves Rate: normal - EKG Data Interpretation: normal EKG 05/06/21 06:07 EKG obtained 212 EKG interpreted by me Normal sinus rhythm normal rate normal axis normal intervals no ST elevation no ST-T signs of ischemia normal EKG rate 90 bpm - Radiology Data Radiology results: report reviewed Chest radiograph no acute process according to radiology impression - Medical Decision Making Shortness of breath leg pain with normal exam: Do not suspect pulmonary embolism PERC negative. Do not suspect DVT. Patient has normal leg exam. He has had previous normal evaluation. Patient is exhibiting hypochondriasis as well as panic disorder. He will follow-up with [facility]. Denies any suicidal or homicidal ideation. He did request benzodiazepine. I explained that this type of medication is not appropriate to be prescribed in the emergency department. I encouraged him to continue to take antidepressant which he was prescribed by his PCP. Patient is discharged home. Critical care attestation.: If time is entered above; I have spent that time in minutes in the direct care of this critically ill patient, excluding procedure time. ED Disposition Clinical Impression: Panic attack, Anxiety disorder, Hypochondriasis Disposition: DC- TO HOME OR SELFCARE Is pt being admited?: No Does the pt Need Aspirin: No Condition: Stable Instructions: Panic Attack, [id number], Managing Anxiety, Adult Referrals: PRIMARY CARE, [Primary Care Provider] - 3-5 Days Forms: Work/School Release Form(ED)
[2021-05-06 06:29] VITALS: BP 135/76
--- NOTE | 2021-05-07 19:33 | Electrocardiograph Report ---
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
== END 2021-05-06 06:29 | disposition home or self-care (01) ==
LOC: ED 01:51
DX: F41.0 Panic disorder [episodic paroxysmal anxiety] (principal); F45.21 Hypochondriasis; F41.9 Anxiety disorder, unspecified; K21.9 Gastro-esophageal reflux disease without esophagitis; Z98.890 Other specified postprocedural states; Z79.899 Other long term (current) drug therapy
CPT/HCPCS: 36415; 71046; 80053; 84484; 85025; 93005

== ENCOUNTER 2021-05-07 14:12 | Emergency (ER) | payer SELFPAY ==
[2021-05-07 18:19] LABS: Hemoglobin 14.3 gm/dl (11.8-15.2); Mean Corpuscular HGB Conc 33 % (32-34); Mean Corpuscular Volume 82 fl (84-94); Platelet Count 308 K/mm3 (140-440); Red Blood Count 5.27 M/mm3 (3.65-5.03); Red Cell Distribution Width 14.4 % (13.2-15.2)
[2021-05-07 18:26] LABS: BUN/Creatinine Ratio 13; Blood Urea Nitrogen 12 mg/dL (9-20); Calcium 9.6 mg/dL (8.4-10.2); Hemolysis Index 9
[2021-05-07 18:33] LABS: Basophils # (Auto) 0.1 K/mm3 (0.0-0.1); Basophils % (Auto) 0.7 % (0.0-1.8); Eosinophils % (Auto) 0.2 % (0.0-4.3); Lymphocytes # (Auto) 1.6 K/mm3 (1.2-5.4); Lymphocytes % (Auto) 20.3 % (13.4-35.0); Monocytes # (Auto) 0.6 K/mm3 (0.0-0.8)
--- NOTE | 2021-05-07 20:34 | Emergency Department Report ---
ED Chest Pain HPI - General Chief Complaint: Chest Pain Stated Complaint: CHEST PAIN/LT SIDE FACE NUMB PUI?: No Time Seen by Provider: 05/07/21 20:28 Source: patient Mode of arrival: Ambulatory Limitations: No Limitations - History of Present Illness Initial Comments: Patient is a 35-year-old male who presents emergency room with complaints of chest pain. Patient states his chest pain started at 8 AM this morning. Patient states his symptoms are worsening. Patient states his left-sided chest pain and epigastric pain. Patient states he has history of anxiety and acid reflux. Patient states that he is not sure if it is anxiety as reflux or something more serious. Patient denies shortness of breath. Patient states the chest pain is a 7 out of 10. Patient states the chest pain starts in the epigastrium and radiates up towards the substernal region and over to the left chest. Patient states the chest pain is better with rest and relaxation techniques. Patient states the chest pain is worse with movement and eating and palpation. Patient denies nausea vomiting. Patient denies diaphoresis. Patient complains of anxiety. Patient states his anxiety is worsening. Patient states he takes Valium for. Patient states the Valium worked well to decrease his anxiety. Patient does not take any other medications for anxiety. Patient states that having left-sided face tingling. Patient states that has since resolved after taking the Valium and sitting in the waiting room. Patient denies recent travel. Patient denies recent international travel. Patient denies exposure to the novel coronavirus. Patient denies sick contacts. Patient denies fever and chills. Patient denies cough. Patient denies d iarrhea. Patient denies coming in contact with anybody with symptoms of the novel coronavirus. MD Complaint: chest pain -: Sudden Onset: during rest Pain Location: substernal, left chest, epigastric Severity: severe Severity scale (0 -10): 7 Quality: sharp Consistency: constant Improves With: rest Worsens With: eating, palpation, movement re: sense of impending doom. denies: nausea, vomting, diaphoresis, dyspnea Other Symptoms: acid taste in mouth, burping. denies: cough, fever, syncope, ra sh, leg swelling, palpitations Treatments Prior to Arrival: none Aspirin use within the Past 7 Days: (0) No - Related Data On Oral Contraceptives: No Previous Rx's Medication Instructions Recorded Last Taken Type LORazepam [Ativan] 0.5 mg PO Q6H PRN #10 tablet 04/27/21 Unknown Rx Esomeprazole Magnesium [NexIUM] 40 mg PO QDAY #30 capsule. 05/07/21 Unknown Rx Allergies Allergy/AdvReac Type Severity Reaction Status Date / Time No Known Allergies Allergy Verified 02/15/21 15:13 Heart Score - HEART Score History: Slightly suspicious EKG: Normal Age: < 45 Risk factors: No known risk factors Troponin: < normal limit HEART Score: 0 - EKG Read Time Time EKG Completed: 14:35 EKG Read Time: 14:47 ED Review of Systems ROS: Stated complaint: CHEST PAIN/LT SIDE FACE NUMB Other details as noted in HPI Constitutional: denies: chills, fever Eyes: denies: eye pain, eye discharge, vision change ENT: denies: ear pain, throat pain Respiratory: denies: cough, shortness of breath, wheezing Cardiovascular: as per HPI, chest pain. denies: palpitations Endocrine: no symptoms reported Gastrointestinal: as per HPI, abdominal pain. denies: nausea, diarrhea Genitourinary: denies: urgency, dysuria Musculoskeletal: denies: back pain, joint swelling, arthralgia Skin: denies: rash, lesions Neurological: denies: headache, weakness, paresthesias Psychiatric: as per HPI, anxiety. denies: depression Hematological/Lymphatic: denies: easy bleeding, easy bruising ED Past Medical Hx - Past Medical History Previous Medical History?: Yes Hx GERD: Yes Hx Psychiatric Treatment: Yes (anxiety/ PANIC DISORDER) - Surgical History Past Surgical History?: Yes Additional Surgical History: right wrist - Family History Family history: no significant - Social History Smoking Status: Never Smoker Substance Use Type: None - Medications Home Medications: Home Medications Medication Instructions Recorded Confirmed Last Taken Type LORazepam [Ativan] 0.5 mg PO Q6H PRN #10 tablet 04/27/21 Unknown Rx Esomeprazole Magnesium [NexIUM] 40 mg PO QDAY #30 capsule. 05/07/21 Unknown Rx ED Physical Exam - General Limitations: No Limitations General appearance: alert, in no apparent distress - Head Head exam: Present: atraumatic, normocephalic - Eye Eye exam: Present: normal appearance - ENT ENT exam: Present: mucous membranes moist - Neck Neck exam: Present: normal inspection - Respiratory Respiratory exam: Present: normal lung sounds bilaterally, chest wall tenderness (Palpitation left chest reproduces symptoms and patient has left chest tenderness to palpation.). Absent: respiratory distress, wheezes, rales, rhonchi, stridor - Cardiovascular Cardiovascular Exam: Present: regular rate, normal rhythm, normal heart sounds. Absent: systolic murmur, diastolic murmur, rubs, gallop - GI/Abdominal GI/Abdominal exam: Present: soft, tenderness (Epigastric tenderness palpation.), normal bowel sounds - Rectal Rectal exam: Present: deferred - Extremities Exam Extremities exam: Present: normal inspection - Back Exam Back exam: Present: normal inspection - Neurological Exam Neurological exam: Present: alert, oriented X3 - Psychiatric Psychiatric exam: Present: normal affect, normal mood - Skin Skin exam: Present: warm, dry, intact, normal color. Absent: rash ED Course Vital Signs 05/07/21 05/07/21 20:34 21:00 Temperature 98 F Pulse Rate 78 94 H Respiratory 14 22 Rate Blood Pressure 141/86 Blood Pressure 128/70 [Right] O2 Sat by Pulse 98 98 Oximetry - Reevaluation(s) Reevaluation #1: I discussed all results and clinical findings with patient. I discussed plan of care with patient. Patient agrees with plan of care. Patient is stable for discharge. Patient will be discharged home. Patient given discharge instructions. Patient voiced understanding of discharge instructions. Since the patient presented to the emergency room with complaints of chest pain, the patient's information was faxed over to our local cardiology group. 05/07/21 21:23 PATRICE score - Patrice Score Age > 65: (0) No Aspirin use within the Past 7 Days: (0) No 3 or more CAD Risk Factors: (0) No Known CAD with more than 50% Stenosis: (0) No Elevated Cardiac Markers: (0) No ST Deviation Greater than 0.5mm: (0) No ED Medical Decision Making - Lab Data Result diagrams: 05/07/21 17:38 05/07/21 17:38 - EKG Data -: EKG Interpreted by Me EKG shows normal: sinus rhythm, axis, intervals, QRS complexes, ST-T waves Rate: normal - Radiology Data Radiology results: report reviewed, image reviewed interpreted by me: Chest x-ray: No pneumonia, no pneumothorax, no foreign body, no osseous findings, no acute findings CHEST 1 VIEW INDICATION: cp COMPARISON: 05/06/2021 FINDINGS: SUPPORT DEVICES: None. HEART / MEDIASTINUM: No significant abnormality. LUNGS / PLEURA: No significant pulmonary or pleural abnormality. No pneumothorax. ADDITIONAL FINDINGS: IMPRESSION: 1. No acute cardiopulmonary disease - Medical Decision Making Patient is a 35-year-old male who presents emergency room with complaints of chest pain and epigastric pain and anxiety. Patient appears to have worsening anxiety. Patient chest pain is reproducible on palpation. Patient also has a progress tenderness palpation. Patient had labs done which were essentially unremarkable. Patient had 2 neg troponins. Patient had a chest x-ray which was negative for acute findings. Patient EKG which was negative for acute findings showed normal STs. I personally reviewed the EKGs and the chest x-ray. Patient will be referred to her local cardiology group for further evaluation treatment and risk stratification as the patient presents emergency room with complaints of chest pain. Patient will refer to a popcorn attendant for his acid reflux and GERD. Patient referred to his primary care for management of his anxiety. Patient will be given a prescription for Nexium. Patient is not require any further emergency medical services or inpatient services. Patient stable for discharge. - Differential Diagnosis GERD, anxiety, chest pain, chest wall pain, Critical care attestation.: If time is entered above; I have spent that time in minutes in the direct care of this critically ill patient, excluding procedure time. ED Disposition Clinical Impression: Chest wall pain, Anxiety Chest pain Qualifiers: Chest pain type: unspecified Qualified Code(s): R07.9 - Chest pain, unspecified GERD with esophagitis Qualifiers: Esophagitis bleeding: without hemorrhage Qualified Code(s): K21.00 - Gastro- esophageal reflux disease with esophagitis, without bleeding Gastritis Qualifiers: Gastritis type: unspecified gastritis Chronicity: acute Gastritis bleeding: without bleeding Qualified Code(s): K29.00 - Acute gastritis without bleeding Disposition: TO HOME OR SELFCARE Is pt being admited?: No Does the pt Need Aspirin: No Condition: Stable Instructions: Gastritis, Adult, [id number], Heartburn, [id number], Chest Wall Pain, [id number], Nonspecific Chest Pain, Adult, Managing Anxiety, Adult Additional Instructions: Patient to follow-up with primary care in 2 to 3 days. Patient to follow-up with teacher education instructor and popcorn attendant in 2 to 3 days. Patient to rest. Patient to increase water. Patient to avoid strenuous exercise or heavy lifting until cleared by primary care and teacher education instructor. Patient to take Tylenol as needed for pain. Patient to take meds as directed. Patient to eat a reflux diet. Patient to return to the ER if condition worsens, changes or new symptoms arise. Prescriptions: Esomeprazole Magnesium [NexIUM] 40 mg PO QDAY #30 capsule. Referrals: MADDIE BAIN MD [Primary Care Provider] - 2-3 Days RAUL NOLAN MD [Staff Physician] - 2-3 Days TAE LEVY MD [Staff Physician] - 2-3 Days GABI QUIROS MD [Staff Physician] - 2-3 Days Time of Disposition: 21:21
--- NOTE | 2021-05-07 21:10 | XRay Report ---
CHEST 1 VIEW INDICATION: cp COMPARISON: 05/06/2021 FINDINGS: SUPPORT DEVICES: None. HEART / MEDIASTINUM: No significant abnormality. LUNGS / PLEURA: No significant pulmonary or pleural abnormality. No pneumothorax. ADDITIONAL FINDINGS: IMPRESSION: 1. No acute cardiopulmonary disease Signer Name: Stanislav Bush MD Signed: 05/07/2021 9:05 PM Workstation Name: [id number]
[2021-05-07 21:47] VITALS: BP 141/86
--- NOTE | 2021-05-13 09:37 | Electrocardiograph Report ---
[facility] Test Date: 2021-05-07 Test Time: 14:35:35 Pat Name: SEJAL AYERS Department: Room: Gender: M Rn Teacher: JANEEN : 1985 Requested By: KIRBY RAYMUNDO III Order Number: [id number] Reading MD: Puneet Neri Measurements Intervals Van Rate: 73 P: 44 PA: 185 QRS: 33 QRSD: 84 T: 31 QT: 376 QTc: 415 Interpretive Statements Sinus rhythm Compared to ECG 05/06/2021 02:13:34 Ventricular premature complex(es) no longer present Electronically Signed On 05-13-2021 9:37:42 EDT by Puneet Neri
== END 2021-05-07 21:47 | disposition home or self-care (01) ==
LOC: ED 14:12
DX: K29.00 Acute gastritis without bleeding (principal); K21.00 Gastro-esophageal reflux disease with esophagitis, without bleeding; R07.89 Other chest pain; F41.9 Anxiety disorder, unspecified; Z79.899 Other long term (current) drug therapy; Z98.890 Other specified postprocedural states
CPT/HCPCS: 36415; 71045; 80048; 84484; 85025; 93005